=== PATIENT | male | born 1970 | race African-American/Black ===

== ENCOUNTER 2018-12-12 18:28 | Emergency (ER) | payer MEDICAID ==
[~2018-12-12] VITALS: Ht 172.7 cm; Wt 74.8 kg
[2018-12-12 18:33] VITALS: BP_SYST 140
[2018-12-12] MEDS ORDERED: DIPH-TET-PERTUS Vaccine 0.5 ML VIAL (ADACEL) I.M. ONE (19:00)
[2018-12-12] MEDS ORDERED: LIDOCAINE 1% 10 MG/ML, 20 ML MDV INJ ONE (19:00)
[2018-12-12 20:08] VITALS: BP_SYST 135
== END 2018-12-12 19:55 ==
LOC: SED 18:28
DX: S61.412A Laceration without foreign body of left hand, initial encounter (principal); R03.0 Elevated blood-pressure reading, without diagnosis of hypertension; Z88.0 Allergy status to penicillin; W27.8XXA Contact with other nonpowered hand tool, initial encounter; Y93.89 Activity, other specified; Y92.89 Other specified places as the place of occurrence of the external cause; Y99.8 Other external cause status
CPT/HCPCS: 12002; 90471; 90715; 99283; J2001